=== PATIENT | female | born 1995 | race Caucasian/White ===

== ENCOUNTER 2019-02-19 18:17 | Emergency (ER) | payer BC, OTHER ==
--- NOTE | 2019-02-19 20:21 | EDM.PDOC ---
ED HPI GENERAL MEDICAL PROBLEM - General Chief Complaint: Respiratory Problem Stated Complaint: BODY ACHES AND CHEST ACHING Time Seen by Provider: 02/19/19 20:20 Source of Information: Reports: Patient, RN Notes Reviewed - History of Present Illness INITIAL COMMENTS - FREE TEXT/NARRATIVE: Pt. presents to ER with 5 day history of cough, chest congestion, sore throat, post-tussive vomiting, and respirophasic chest discomfort. She states that she started getting sick last weekend. She has been into to the clinic twice in the past 2 days for this. She was initially started on tessalon and prednisone. She was seen by her PCP earlier today, at which time her influenza was negative. Pt. states that the steroids and tessalon has not helped with the symptoms. 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 No recent travel, out of the [facility] or otherwise. She states that the cough is non-productive. She states that she has increased discomfort in the chest when she takes a deep breath. Denies any substernal chest pain-she states the discomfort affects her entire chest. Onset: Today Onset Date: 02/19/19 Location: Reports: Chest Quality: Reports: Ache, Burning Severity: Moderate Improves with: Reports: Rest Worsens with: Reports: Breathing - Related Data Allergies Allergy/AdvReac Type Severity Reaction Status Date / Time bupivacaine AdvReac Intermediate Other Verified 02/19/19 20:14 Home Meds: Home Meds SUMAtriptan Succinate [Imitrex] 50 mg PO ASDIRECTED PRN 07/08/18 [History] Divalproex Sodium [Depakote] 125 mg PO BID 12/16/18 [History] Prazosin HCl [Prazosin] 2 mg PO BEDTIME 12/16/18 [History] traZODone HCl [Trazodone HCl] 25 - 100 mg PO BEDTIME 12/16/18 [History] DULoxetine HCl [Duloxetine HCl] 30 mg PO DAILY 30 Days #30 capsule. 01/16/19 [ Rx] Gabapentin [Neurontin] 600 mg PO TID 30 Days #180 capsule 02/07/19 [Rx] Past Medical History HEENT History: Reports: Cataract, Other (See Below) Other HEENT History: She wears soft contacts and glasses. Cardiovascular History: Reports: Hypertension Respiratory History: Reports: Intubation, Previous Gastrointestinal History: Reports: None Genitourinary History: Reports: UTI, Recurrent BI TECHNICAL LEAD History: Reports: Other BI TECHNICAL LEAD History: LMP one week ago. Full term without complications during or delivery. Musculoskeletal History: Reports: Arthritis, Back Pain, Chronic, Fracture, Osteoarthritis, Other (See Below) Other Musculoskeletal History: History of herniated disc in L3 and L4 with previous neurosurgical consultation and physical therapy with watchful waiting at this time. Digit #5 left toe fracture at age 14. Right wrist fracture at age 9. Fracture of digit #2 of the left hand at age 15. Neurological History: Reports: Headaches, Chronic, Migraines Psychiatric History: Reports: Anxiety, Depression, Other (See Below) Other Psychiatric History: Chronic insomnia. Endocrine/Metabolic History: Reports: Obesity/BMI 30+ Hematologic History: Reports: None Immunologic History: Reports: None Oncologic (Cancer) History: Reports: None Dermatologic History: Reports: Other (See Below) Other Dermatologic History: Acne vulgaris - Infectious Disease History Infectious Disease History: Reports: Chicken Pox. Denies: C-Difficile, Meningitis, Mononucleosis, MRSA, Mumps, Rheumatic Fever, Rubella, Scarlet Fever , Shingles, VRE - Past Surgical History Head Surgeries/Procedures: Reports: None HEENT Surgical History: Reports: Adenoidectomy, Oral Surgery, Tonsillectomy, Other (See Below) Other HEENT Surgeries/Procedures: Tonsillectomy and adenoidectomy at age 6. Multiple teeth extractions. Cardiovascular Surgical History: Reports: None Respiratory Surgical History: Reports: None GI Surgical History: Reports: Bariatric Procedure, Other (See Below) Other GI Surgeries/Procedures: Gastric bypass on 04/22/18. Female Surgical History: Reports: None Endocrine Surgical History: Reports: None Neurological Surgical History: Reports: None Musculoskeletal Surgical History: Reports: ORIF, Other (See Below) Other Musculoskeletal Surgeries/Procedures:: ORIF of digit #2 fracture of the left hand at age 15. Oncologic Surgical History: Reports: None Dermatological Surgical History: Reports: None - Past Imaging History Past Imaging History: Reports: MRI (Lumbar spine in December 2017) Social & Family History - Family History Cardiac: Reports: Hypertension Other Cardiac Family History: MOTHER/FATHER Respiratory: Reports: Sleep Apnea Other Respiratory Family Hisory: FATHER Neurological: Reports: Seizure Other Neurological Family History: DAUGHTER WITH EPILEPSY Endocrine/Metabolic: Reports: Diabetes, Type I, Diabetes, type II, Obesity/MBI 30+ Other Endocrine/Metabolic Family History: BROTHER TYPE I. MOTHER TYPE II. 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 ) ED ROS GENERAL - Review of Systems Review Of Systems: See Below Constitutional: Reports: Fever, Chills HEENT: Reports: Rhinitis, Throat Pain Respiratory: Reports: Pleuritic Chest Pain, Cough Cardiovascular: Reports: No Symptoms Endocrine: Reports: No Symptoms GI/Abdominal: Reports: No Symptoms : Reports: No Symptoms Musculoskeletal: Reports: No Symptoms Skin: Reports: No Symptoms Neurological: Reports: No Symptoms Psychiatric: Reports: No Symptoms Hematologic/Lymphatic: Reports: No Symptoms Immunologic: Reports: No Symptoms ED EXAM, GENERAL - Physical Exam Exam: See Below Exam Limited By: No Limitations General Appearance: Alert, WD/WN, No Apparent Distress Eye Exam: Bilateral Eye: EOMI, PERRL Ears: Normal External Exam, Normal Canal, Hearing Grossly Normal, Normal TMs Ear Exam: Bilateral Ear: Auricle Normal, Canal Normal, TM normal Nose: Normal Inspection, Normal Mucosa, No Blood Throat/Mouth: Normal Inspection, Normal Lips, Normal Teeth, Normal Gums, No Airway Compromise, Other (mild cobblestoning to hypopharynx. ) Head: Atraumatic, Normocephalic Neck: Normal Inspection, Supple, Non-Tender Respiratory/Chest: No Respiratory Distress, No Accessory Muscle Use, Rhonchi Cardiovascular: Normal Peripheral Pulses, Regular Rate, Rhythm, No Edema, No JVD Peripheral Pulses: 4+: Radial (R) GI/Abdominal: Normal Bowel Sounds, Soft, Non-Tender, No Organomegaly, No Distention, No Abnormal Bruit, No Mass (Female) Exam: Deferred Rectal (Female) Exam: Deferred Back Exam: Normal Inspection, Full Range of Motion, NT Neurological: Alert, Oriented, CN II-XII Intact, Normal Cognition, Normal Gait, Normal Reflexes, No Motor/Sensory Deficits Psychiatric: Normal Affect, Normal Mood Skin Exam: Warm, Dry, Intact, Normal Color, No Rash Course - Radiology Interpretation Free Text/Narrative:: chest x-ray is negative for acute pathology Departure - Departure Time of Disposition: 21:16 Disposition: Home, Self-Care 01 Clinical Impression: Viral illness - Discharge Information Referrals: Mercedes Arceo MD [Primary Care Provider] - Forms: ED Department Discharge - Problem List Review Problem List Initiated/Reviewed/Updated: Yes - Assessment/Plan Plan: Phenergan with codeine 1-2 tsp every 4-6 hours as needed for cough. Do not take if operating motor vehicles. Follow-up in clinic if still having symptoms after 7-10 days. Pt. was reassured that this is a viral illness and antibiotics are not needed at this time. Continue with the prednisone and take the tessalon as needed during the day or when driving.
--- NOTE | 2019-02-19 20:36 | CR ---
[id number] RAD/RAD Chest PA And Lateral EXAM: RAD Chest PA And Lateral CLINICAL DATA: COUGH. CONGESTION COMPARISON: NO PREVIOUS SIMILAR EXAM IS AVAILABLE. FINDINGS: The lungs are clear. The cardiomediastinal contour is normal. The regional bones and soft tissues are unremarkable. IMPRESSION: NO ACUTE PROCESS. Frandy Batista MD 02/19/19 2258 Thank you for allowing us to participate in the care of your patient.
[2019-02-19] MEDS: Take Home: Codeine/Promethazine 10-6.25 MG/5 ML Syrup 5 ML, 2 Cup Pack PO ONE (20:59)
== END 2019-02-19 21:00 | disposition home or self-care (01) ==
LOC: VM.ED 18:17
DX: B34.9 Viral infection, unspecified (principal); Z88.4 Allergy status to anesthetic agent
CPT/HCPCS: 71046; 99283-25; A9270-GY

== ENCOUNTER 2019-04-12 19:38 | Emergency (ER) | payer BC, OTHER ==
[2019-04-12] MEDS ORDERED: Morphine 2 MG/ML Syringe IVPUSH ONE ×2 (20:04→22:05)
[2019-04-12] MEDS ORDERED: Ondansetron 4 MG/2 ML SDV IVPUSH ONE (20:04)
--- NOTE | 2019-04-12 20:18 | EDM.PDOC ---
ED HPI GENERAL MEDICAL PROBLEM - General Chief Complaint: Back Pain or Injury Stated Complaint: BACK PAIN Time Seen by Provider: 04/12/19 19:50 Source of Information: Reports: Patient, Family History Limitations: Reports: No Limitations - History of Present Illness INITIAL COMMENTS - FREE TEXT/NARRATIVE: 24-year-old white female with history of chronic back pain over the last couple years which she has been treated for before by primary care provider and by pain management with multiple trigger point injections last MRI was approximately one years ago where she was noted to have multiple lower herniated disc she hastaken in the past taken Neurontin but stopped secondary to the way it made her feel she has taken Lortab in the past also for pain control but also stopped it secondary to have made her feel She states that she has daily back pain this morning approximately 10:00 she noticed that it felt a little different than she had a little bit more of pain in her lower back radiating into bilateral legs with a little bit of numbness she states upon picking up some clothes at the house approximately at 6 PM tonight she felt a sudden pain in her back and she lost her bladder urinating all over herself and states her legs went numb and started tingling all over in various parts of her legs she was brought here to the ER by her She states out of the pain is worse with any type of movement of the lower extremities feels better by laying down in the in still she says the numbness has increased where she can barely feel the outer portions of her leg more so on the left than the right she denies any more episodes of incontinence of bowel or bladder she denies any urinary retention as well Onset: Today, Sudden Duration: Hour(s): Location: Reports: Back Quality: Reports: Sharp, Stabbing Improves with: Reports: Rest Worsens with: Reports: Movement 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 01/16/19 [ Rx] Past Medical History HEENT History: Reports: Cataract, Other (See Below) Other HEENT History: She wears soft contacts and glasses. Cardiovascular History: Reports: Hypertension Respiratory History: Reports: Intubation, Previous Gastrointestinal History: Reports: None Genitourinary History: Reports: UTI, Recurrent BUSINESS OFFICE REPRESENTATIVE History: Reports: Other BUSINESS OFFICE REPRESENTATIVE History: Full term without complications during or delivery. Musculoskeletal History: Reports: Arthritis, Back Pain, Chronic, Fracture, Osteoarthritis, Other (See Below) Other Musculoskeletal History: History of herniated disc in L3 and L4 with previous neurosurgical consultation and physical therapy with watchful waiting at this time. Digit #5 left toe fracture at age 14. Right wrist fracture at age 9. Fracture of digit #2 of the left hand at age 15. Neurological History: Reports: Headaches, Chronic, Migraines Psychiatric History: Reports: Anxiety, Depression, Other (See Below) Other Psychiatric History: Chronic insomnia. Endocrine/Metabolic History: Reports: Obesity/BMI 30+ Hematologic History: Reports: None Immunologic History: Reports: None Oncologic (Cancer) History: Reports: None Dermatologic History: Reports: Other (See Below) Other Dermatologic History: Acne vulgaris - Infectious Disease History Infectious Disease History: Reports: Chicken Pox. Denies: C-Difficile, Meningitis, Mononucleosis, MRSA, Mumps, Rheumatic Fever, Rubella, Scarlet Fever , Shingles, VRE - Past Surgical History Head Surgeries/Procedures: Reports: None HEENT Surgical History: Reports: Adenoidectomy, Oral Surgery, Tonsillectomy, Other (See Below) Other HEENT Surgeries/Procedures: Tonsillectomy and adenoidectomy at age 6. Multiple teeth extractions. Cardiovascular Surgical History: Reports: None Respiratory Surgical History: Reports: None GI Surgical History: Reports: Bariatric Procedure, Other (See Below) Other GI Surgeries/Procedures: Gastric bypass on 04/22/18. Female Surgical History: Reports: None Endocrine Surgical History: Reports: None Neurological Surgical History: Reports: None Musculoskeletal Surgical History: Reports: ORIF, Other (See Below) Other Musculoskeletal Surgeries/Procedures:: ORIF of digit #2 fracture of the left hand at age 15. Oncologic Surgical History: Reports: None Dermatological Surgical History: Reports: None - Past Imaging History Past Imaging History: Reports: MRI (Lumbar spine in December 2017) Social & Family History - Family History Cardiac: Reports: Hypertension Other Cardiac Family History: MOTHER/FATHER Respiratory: Reports: Sleep Apnea Other Respiratory Family Hisory: FATHER Neurological: Reports: Seizure Other Neurological Family History: DAUGHTER WITH EPILEPSY Endocrine/Metabolic: Reports: Diabetes, Type I, Diabetes, type II, Obesity/MBI 30+ Other Endocrine/Metabolic Family History: BROTHER TYPE I. MOTHER TYPE II. 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 Denies: Fever, Chills, Malaise, Weakness HEENT: Reports: No Symptoms Respiratory: Reports: No Symptoms Cardiovascular: Reports: No Symptoms Endocrine: Reports: No Symptoms GI/Abdominal: Reports: No Symptoms. Denies: Nausea, Vomiting : Reports: Incontinence, Other (Urinary incontinence 1 episode at 6 PM). Denies: Urinary Retention Musculoskeletal: Reports: Back Pain, Leg Pain, Muscle Pain Skin: Reports: No Symptoms Neurological: Denies: Paresthesia, Tingling, Difficulty Walking Psychiatric: Reports: No Symptoms Hematologic/Lymphatic: Reports: No Symptoms Immunologic: Reports: No Symptoms ED EXAM,LOWER BACK PAIN/INJURY - Physical Exam Exam: See Below Exam Limited By: No Limitations General Appearance: Alert, WD/WN, Mild Distress Eye Exam: Bilateral Eye: EOMI, PERRL Throat/Mouth: Normal Lips, Normal Teeth, Normal Gums, Normal Oropharynx Head: Atraumatic, Normocephalic Neck: Normal Inspection, Supple, Non-Tender, Full Range of Motion Respiratory/Chest: No Respiratory Distress GI/Abdominal: Soft, Non-Tender, No Organomegaly Rectal (Female) Exam: Other (Patient had a positive rectal tone but I noted it was decreased in strength) Back Exam: Other (Exam to the back there was no cervical thoracic tenderness to palpation lower lumbar ear starting about L4 L3 area positive tenderness to palpation but no reproduction of pain patient had normal DTR limited dorsiflexion and plantar flexion limited exam for straight leg raises secondary to pain 3 out of 5 strength bilateral patient had decreased soft touch sensation across bilateral feet patient states she cannot feel soft touch sensation to the left lateral thigh) Extremities: Normal Inspection, Non-Tender, No Pedal Edema (Positive dorsalis pedis posterior tibialis cap Refill bilaterally). No: Normal Range of Motion Neurological: Normal Mood/Affect, Normal Dorsiflexion, CN II-XII Intact, Normal Plantar Flexion, Oriented x 3, Abnormal Sensation, Abnormal Light Touch. No: No Motor/Sensory Deficits, Saddle Anesthesia DTR - Lower Extremities: 1+: Knee (R), Knee (L), Ankle (R), Ankle (L) Psychiatric: Normal Affect, Anxious Skin Exam: Warm, Dry, Intact, Normal Color, No Rash Course - Vital Signs Text/Narrative:: called [facility] spoke with DR Enriquez adviscarlo getting bladder scan and CT scan noncontrast Bladder scan showed 14 mL of urine in the bladder patient was not able to void was given by mouth fluids and IV fluids hCG was ordered which was negative patient went to CT Spoke [place] Dr[place] Enriquez [place] [address] is inconclusive. Recommend she gets MRI patient will be sent to [facility] DR HOLCOMB stephanie accept transfer via EMS Last Recorded V/S: Last Vital Signs Temp 36.8 C 04/12/19 21:49 Pulse 84 04/12/19 21:49 Resp 18 04/12/19 21:49 BP 112/67 04/12/19 21:49 Pulse Ox 98 04/12/19 21:49 - Orders/Labs/Meds Orders: Active Orders 24 hr Category Date Time Status Lumbar Spine wo Cont [CT] Stat Exams 04/12/19 20:50 Taken Preg Urine [HCG QUALITATIVE,URINE] [URCHEM] Stat Lab 04/12/19 21:13 Ordered Labs: Laboratory Tests 04/12/19 Range/Units 21:13 POC Urine HCG, Qual Negative (NEGATIVE) Meds: Medications Discontinued Medications Generic Name Dose Route Start Last Admin Trade Name Freq PRN Reason Stop Dose Admin Morphine Sulfate 2 mg 04/12/19 20:04 04/12/19 20:11 Morphine IVPUSH 04/12/19 20:05 2 mg ONETIME ONE Administration Ondansetron HCl 4 mg 04/12/19 20:04 04/12/19 20:11 Zofran IVPUSH 04/12/19 20:05 4 mg ONETIME ONE Administration Departure - Departure Time of Disposition: 22:00 Disposition: DC/Tfer to Acute Hospital 02 Clinical Impression: Acute low back pain, Paresthesia - Discharge Information Referrals: Mercedes Arceo MD [Primary Care Provider] - Forms: ED Department Discharge, Interfacility Transfer EMTALA - Problem List & Annotations (1) Low back pain SNOMED Code(s): 917750458 Code(s): M54.5 - LOW BACK PAIN Status: Acute Priority: High Current Visit: No Onset Date: 07/08/18 Annotation/Comment:: No history of acute injury today with this not a Workmen's Compensation injury secondary to previous known back history as above. Note previous physical therapy treatment and neurosurgical consultation with no surgery indicated at this time by their history. Continue to observe symptoms closely by her new regular provider with patient and her just moving to this area one week ago. She cannot take NSAIDs on a regular basis secondary to previous gastric bypass surgery, however she did agree to IV Toradol today with additional IV Protonix given as GI prophylaxis. Otherwise symptomatic relief as per discharge instructions. Sedation precautions given especially in light of patient's current medical therapy. Work excuse provided. Qualifiers: Chronicity: acute Back pain laterality: bilateral Sciatica presence: without sciatica Qualified Code(s): M54.5 - Low back pain - My Orders Last 24 Hours: My Active Orders 04/12/19 20:50 Lumbar Spine wo Cont [CT] Stat 04/12/19 21:13 Preg Urine [HCG QUALITATIVE,URINE] [URCHEM] Stat - Assessment/Plan Last 24 Hours: My Active Orders 04/12/19 20:50 Lumbar Spine wo Cont [CT] Stat 04/12/19 21:13 Preg Urine [HCG QUALITATIVE,URINE] [URCHEM] Stat
--- NOTE | 2019-04-13 08:31 | CT ---
[id number] CT/CT Lumbar Spine WO IV Exam: CT Lumbar Spine WO IV Indication:LOSS BLADDER W/ BACK PAIN. Comparison: No prior imaging for comparison. Discussion: T12-L1 demonstrate chronic anterior wedging. No evidence of an acute fracture or compression deformity. No osseous lesion. T12-L1 through L2-3: No spinal canal or foraminal stenosis. L3-4: Bulky disc osteophyte complex most prominent in the midline posteriorly. Disc osteophyte material projects into the spinal canal resulting in at least moderate central canal stenosis. Mild facet joint arthropathy. Combination of findings results in mild bilateral subarticular foraminal stenosis. L4-5: Degenerative disc disease with a disc osteophyte complex and intervertebral disc height loss. Mild bilateral facet joint arthropathy. Findings result in mild to moderate spinal canal stenosis in addition there is mild right and moderate left foraminal stenosis. L5-S1: No significant stenosis. Intervertebral disc height loss with a small disc osteophyte complex. Visualized retroperitoneal structures are unremarkable. Impression: No acute findings in lumbar spine. At least moderate L3-4 central canal stenosis secondary to a bulky disc osteophyte complex. Consider MRI for further evaluation as clinically warranted. Additional findings and spondylosis are described above. Antonino Gusman MD 04/13/19 0829 Thank you for allowing us to participate in the care of your patient.
== END 2019-04-12 22:32 | disposition short-term general hospital (02) ==
LOC: VM.ED 19:38
DX: M54.5 Low back pain (principal); R20.2 Paresthesia of skin; I10 Essential (primary) hypertension; F41.9 Anxiety disorder, unspecified; F32.9 Major depressive disorder, single episode, unspecified; Z88.8 Allergy status to other drugs, medicaments and biological substances
CPT/HCPCS: 51798; 72131; 81025; 96374; 96375; 96376; 99285; J2270; J2405